=== PATIENT | female | born 1955 | race Caucasian/White ===

== ENCOUNTER 2020-08-23 08:00 | Outpatient (CLI) | payer MEDICARE, MEDICAID ==
--- NOTE | 2020-08-23 09:10 | XRAY Report ---
PROCEDURE: Hand 3 View RT INDICATIONS: PAIN IN RIGHT HAND TECHNIQUE: 3 views of the hand(s) acquired. COMPARISON: Wrist plain film same day. FINDINGS: Bones: No hand fractures or dislocations but fractures are noted, partially visualized, at the dista l radius and ulna that appear acute.. No suspicious bony lesions. Soft tissues: No suspicious soft tissue calcifications. IMPRESSION: No hand fracture found but the distal radius and ulna demonstrate acute appearing fractures that are detailed in the dedicated report for the wrist same day. Reviewed by: Eb Barger MD on 08/23/2020 9:08 AM PDT Approved by: Eb Barger MD on 08/23/2020 9:08 AM PDT Station ID: [id number]
--- NOTE | 2020-08-23 09:12 | XRAY Report ---
PROCEDURE: Wrist 4 View RT INDICATIONS: PAIN IN RIGHT WRIST TECHNIQUE: 4 views of the wrist were acquired. COMPARISON: Hand plain films same day. FINDINGS: Bones: No dislocations. No suspicious bony lesions. There is a distal radius dorsally angulated i mpacted: These fracture, moderate in severity. There is also fracture near the tip of the ulnar stylo id process. Scaphoid view: No trauma to the scaphoid is found. Soft tissues: No suspicious soft tissue calcifications. IMPRESSION: No carpal fracture but there is a Colle's fracture involving the distal radius and an ulnar styloid p rocess fracture near the tip. These appear acute. Reviewed by: Eb Barger MD on 08/23/2020 9:11 AM PDT Approved by: Eb Barger MD on 08/23/2020 9:11 AM PDT Station ID: [id number]
--- NOTE | 2020-08-23 09:13 | XRAY Report ---
PROCEDURE: Forearm RT INDICATIONS: PAIN IN RIGHT FOREARM TECHNIQUE: 2 views of the forearm were acquired. COMPARISON: Wrist plain films same day. FINDINGS: Bones: No fractures or dislocations proximally but the Colle's fracture and distal ulnar fracture ar e again noted. No new injury seen.. No suspicious bony lesions. Soft tissues: No suspicious soft tissue calcifications or masses. IMPRESSION: Distal radius and ulna fractures as discussed, also detailed in dedicated wrist plain films same day. No injury through the more proximal right forearm is found. Reviewed by: Eb Barger MD on 08/23/2020 9:12 AM PDT Approved by: Eb Barger MD on 08/23/2020 9:12 AM PDT Station ID: [id number]
== END 2020-08-23 23:59 | disposition home or self-care (01) ==
LOC: DI.S 08:00
PROVIDERS: ATTEND Physician Assistant Medical
DX: M79.631 Pain in right forearm (principal); M25.531 Pain in right wrist; M79.641 Pain in right hand; S52.531A Colles' fracture of right radius, initial encounter for closed fracture

== ENCOUNTER 2020-10-18 08:00 | Outpatient (CLI) | payer MEDICARE, MEDICAID ==
--- NOTE | 2020-10-18 09:11 | XRAY Report ---
PROCEDURE: Sternum INDICATIONS: CONTUSION TO FRONT WALL OF STERNUM TECHNIQUE: 2 views of the sternum acquired. COMPARISON: None FINDINGS: Bones: No fractures or dislocations. No suspicious bony lesions. Soft tissues: Retrosternal soft tissues appear normal. IMPRESSION: Nondisplaced sternal fracture. If there are persistent symptoms or continued clinical concern for pat hology, then repeat plain film radiographs (7-10 days) or advanced imaging (CT, MR, bone scan) should be considered for further evaluation. Reviewed by: Maggie Sahu MD, PhD on 10/18/2020 9:10 AM PDT Approved by: Maggie Sahu MD, PhD on 10/18/2020 9:10 AM PDT Station ID: [id number]
--- NOTE | 2020-10-18 09:11 | XRAY Report ---
PROCEDURE: Sacrum/Coccyx INDICATIONS: PAIN IN THE COCCYX TECHNIQUE: 3 views of the sacrum and coccyx acquired. COMPARISON: None FINDINGS: Bones: No fractures or dislocations. No suspicious bony lesions. Soft tissues: Visualized bowel gas pattern is normal. Bilateral fallopian tubal occlusion devices. No suspicious soft tissue densities. IMPRESSION: No displaced fracture. No acute osseous lesion. If there persistent symptoms or continued clinical co ncern for pathology, then repeat plain film radiographs (7-10 days) or advanced imaging (CT, MR, bone scan) should be considered for further evaluation. Reviewed by: Maggie Sahu MD, PhD on 10/18/2020 9:09 AM PDT Approved by: Maggie Sahu MD, PhD on 10/18/2020 9:09 AM PDT Station ID: [id number]
== END 2020-10-18 23:59 | disposition home or self-care (01) ==
LOC: DI.S 08:00
PROVIDERS: ATTEND Physician Assistant Medical
DX: S20.219A Contusion of unspecified front wall of thorax, initial encounter (principal); M53.3 Sacrococcygeal disorders, not elsewhere classified

== ENCOUNTER 2022-04-19 12:34 | Outpatient (CLI) | payer MEDICARE, MEDICAID | END 2022-04-19 12:35 | disposition E | LOC: EMS 12:34 ==